=== PATIENT | male | born 1990 | race Caucasian/White ===

== ENCOUNTER 2019-12-26 10:18 | Emergency (ER) | payer MEDICAID ==
[~2019-12-26] VITALS: Ht 157.5 cm; Wt 62.0 kg
[~2019-12-26 10:18] MED LIST: BETA45CR15 TP; ENAL20TA PO; IBUP-2030 PO; INSU3INS6 SQ; INSULIN HUMALOG SQ
[2019-12-26 10:31] VITALS: BP 149/97
== END 2019-12-26 13:53 | disposition home or self-care (01) ==
LOC: ER 10:18
DX: R68.89 Other general symptoms and signs (principal); Z53.21 Procedure and treatment not carried out due to patient leaving prior to being seen by health care provider